=== PATIENT | male | born 1980 | race Caucasian/White ===

== ENCOUNTER 2019-08-19 08:13 | Inpatient (IN) | payer BC ==
[2019-08-19 09:56] LABS: CHLORIDE,CL 101 mEq/L (98-106); SODIUM,NA 138 mEq/L (136-145)
[2019-08-19] MEDS ORDERED: Iopamidol 755 Mg/ML 200 ML Bottle IV ONE (11:01)
[2019-08-19] MEDS ORDERED: Barium Sulfate Oral Susp 450 ML Bottle PO ONE (11:01)
[2019-08-19] MEDS ORDERED: Sodium Chloride 0.9% 1,000 ML IV ONE (11:15)
[2019-08-19] MEDS ORDERED: Morphine 2 MG/ML Syringe IVPUSH PRN (15:07)
[2019-08-19] MEDS ORDERED: Acetaminophen/HYDROcodone 325-5 MG Tab PO PRN (15:07)
[2019-08-19] MEDS ORDERED: Ondansetron 4 MG Tab.DIS PO PRN (15:07)
[2019-08-19] MEDS ORDERED: Levofloxacin/Dextrose 5%-Water 500 MG in Premix Bag 1 BAG IV SCH (15:30)
[2019-08-19] MEDS: Acetaminophen 325 MG Tab PO PRN (16:01)
[2019-08-19] MEDS: Enoxaparin 40 MG/0.4 ML Syringe SUBCUT SCH (16:01)
[2019-08-19] MEDS: Nicotine 14 MG/24 Hr Patch TRDERM SCH (16:01)
[2019-08-19] MEDS: Sodium Chloride 0.9% 1,000 ML IV SCH (16:03)
[2019-08-19] MEDS: Levofloxacin/Dextrose 5%-Water 500 MG in Premix Bag 1 BAG IV SCH (16:05)
[2019-08-20] MEDS: Sodium Chloride 0.9% 1,000 ML IV SCH ×3 (00:13→15:34)
[2019-08-20] MEDS: Acetaminophen 325 MG Tab PO PRN ×2 (04:24→11:49)
[2019-08-20 08:42] LABS: CHLORIDE,CL 108 mEq/L (98-106); SODIUM,NA 142 mEq/L (136-145)
--- NOTE | 2019-08-20 09:02 | PCM.PN ---
- General Info Date of Service: 08/20/19 Admission Dx/Problem (Free Text): Prostatitis Functional Status: Reports: Pain Controlled, Tolerating Diet, Ambulating - Review of Systems General: Reports: Fatigue, Malaise. Denies: Fever HEENT: Reports: No Symptoms Pulmonary: Denies: Shortness of Breath, Cough Cardiovascular: Denies: Chest Pain, Edema, Lightheadedness Gastrointestinal: Reports: Abdominal Pain (abdomen sore). Denies: Nausea, Vomiting Genitourinary: Reports: Retention (patient states less hesitancy noted at 4 am, no blood noted) Musculoskeletal: Reports: No Symptoms Skin: Reports: No Symptoms Neurological: Reports: No Symptoms - Patient Data Vitals - Most Recent: Last Vital Signs Temp 97.0 F 08/20/19 08:00 Pulse 68 08/20/19 08:00 Resp 18 08/20/19 08:00 BP 117/66 08/20/19 08:00 Pulse Ox 98 08/20/19 08:00 Weight - Most Recent: 263 lb 1.6 oz I&O - Last 24 Hours: Intake & Output 08/19/19 08/20/19 08/20/19 22:59 06:59 14:59 Intake Total 1000 921 Balance 1000 921 Lab Results Last 24 Hours: Laboratory Results - last 24 hr 08/19/19 08/19/19 08/19/19 Range/Units 09:26 09:26 09:26 WBC 19.5 H (5.0-10.0) 10^3/uL RBC 5.02 (4.50-6.00) 10^6/uL Hgb 15.7 (14.0-18.0) g/dL Hct 46.5 (40.0-54.0) % MCV 92.6 (82.0-94.0) fL MCH 31.3 (27.0-32.0) pg MCHC 33.8 (33.0-38.0) g/dL RDW Coeff of Bambi 12.8 (11.0-15.0) % Plt Count 232 (150-400) 10^3/uL Neut % (Auto) 72.1 (35-85) % Lymph % (Auto) 15.6 (10-55) % [place] % (Auto) 11.9 (0-16) % Eos % (Auto) 0.2 (0-5) % Baso % (Auto) 0.2 (0-3) % Neut # (Auto) 14.04 H (1.80-7.00) 10^3/uL Lymph # (Auto) 3.05 (1.00-4.80) 10^3/uL [place] # (Auto) 2.32 H (0.00-0.80) 10^3/uL Eos # (Auto) 0.04 (0.00-0.45) 10^3/uL Baso # (Auto) 0.04 10^3/uL Sodium 138 (136-145) mEq/L Potassium 4.0 (3.5-5.0) mEq/L Chloride 101 (98-106) mEq/L Carbon Dioxide 27 (21-32) mmol/L BUN 10 (7-18) mg/dL Creatinine 1.2 (0.7-1.3) mg/dL Est Cr Clr Drug Dosing TNP Estimated GFR (MDRD) > 60 (>=60) mL/min Glucose 92 (75-99) mg/dL Lactic Acid 1.0 (0.4-2.0) mmol/L Calcium 8.9 (8.4-10.1) mg/dL Total Bilirubin 0.8 (0.0-1.0) mg/dL AST 16 (15-37) U/L ALT 36 (12-78) U/L Alkaline Phosphatase 76 (46-116) U/L C-Reactive Protein (0.2-0.8) mg/dL Total Protein 8.2 (6.4-8.2) g/dL Albumin 3.6 (3.4-5.0) g/dL PSA Screen 4.67 H (0.13-4.0) ng/mL 08/20/19 08/20/19 Range/Units 08:30 08:30 WBC 7.8 (5.0-10.0) 10^3/uL RBC 4.63 (4.50-6.00) 10^6/uL Hgb 14.4 (14.0-18.0) g/dL Hct 43.3 (40.0-54.0) % MCV 93.5 (82.0-94.0) fL MCH 31.1 (27.0-32.0) pg MCHC 33.3 (33.0-38.0) g/dL RDW Coeff of Bambi 12.7 (11.0-15.0) % Plt Count 215 (150-400) 10^3/uL Neut % (Auto) 55.7 (35-85) % Lymph % (Auto) 27.2 (10-55) % [place] % (Auto) 15.0 (0-16) % Eos % (Auto) 1.7 (0-5) % Baso % (Auto) 0.4 (0-3) % Neut # (Auto) 4.35 (1.80-7.00) 10^3/uL Lymph # (Auto) 2.12 (1.00-4.80) 10^3/uL [place] # (Auto) 1.17 H (0.00-0.80) 10^3/uL Eos # (Auto) 0.13 (0.00-0.45) 10^3/uL Baso # (Auto) 0.03 10^3/uL Sodium 142 (136-145) mEq/L Potassium 3.8 (3.5-5.0) mEq/L Chloride 108 H (98-106) mEq/L Carbon Dioxide 25 (21-32) mmol/L BUN 10 (7-18) mg/dL Creatinine 1.0 (0.7-1.3) mg/dL Est Cr Clr Drug Dosing 117.36 Estimated GFR (MDRD) > 60 (>=60) mL/min Glucose 98 (75-99) mg/dL Lactic Acid (0.4-2.0) mmol/L Calcium 8.0 L (8.4-10.1) mg/dL Total Bilirubin (0.0-1.0) mg/dL AST (15-37) U/L ALT (12-78) U/L Alkaline Phosphatase (46-116) U/L C-Reactive Protein 10.0 H (0.2-0.8) mg/dL Total Protein (6.4-8.2) g/dL Albumin (3.4-5.0) g/dL PSA Screen (0.13-4.0) ng/mL Med Orders - Current: Current Medications Acetaminophen (Tylenol) 650 mg PO Q4H PRN PRN Reason: Pain (Mild 1-3)/fever Last Admin: 08/20/19 04:24 Dose: 650 mg Hydrocodone Bitart/Acetaminophen ([place] 325-5 Mg) 1 tab PO Q4H PRN PRN Reason: Pain (moderate 4-6) Enoxaparin Sodium (Lovenox) 40 mg SUBCUT Q24H [facility] Last Admin: 08/19/19 16:01 Dose: 40 mg Sodium Chloride (Normal Saline) 1,000 mls @ 125 mls/hr IV ASDIRECTED [facility] Last Admin: 08/20/19 07:35 Dose: 125 mls/hr Levofloxacin/Dextrose 500 mg/ (Premix) 100 mls @ 100 mls/hr IV Q24H [facility] Last Admin: 08/19/19 16:05 Dose: 100 mls/hr Morphine Sulfate (Morphine) 2 mg IVPUSH Q2H PRN PRN Reason: Pain (severe 7-10) Nicotine (Habitrol) 14 mg TRDERM DAILY@1600 [facility] Last Admin: 08/19/19 16:01 Dose: 14 mg Ondansetron HCl (Zofran Odt) 4 mg PO Q4H PRN PRN Reason: nausea, able to take PO Discontinued Medications Barium Sulfate (Readi-Cat 2) 900 ml PO ONETIME ONE Stop: 08/19/19 11:02 Last Admin: 08/19/19 11:45 Dose: 900 ml Sodium Chloride (Normal Saline) 1,000 mls @ 1,000 mls/hr IV ONETIME ONE Stop: 08/19/19 12:14 Last Admin: 08/19/19 11:27 Dose: 1,000 mls/hr Levofloxacin/Dextrose 500 mg/ (Premix) 100 mls @ 100 mls/hr IV Q24H [facility] Iopamidol (Isovue-370 (76%)) 160 ml IV ONETIME ONE Stop: 08/19/19 11:02 Last Admin: 08/19/19 11:46 Dose: 160 ml - Exam General: Alert, Oriented HEENT: Mucous Membr. Moist/[place] Neck: Supple Lungs: Clear to Auscultation, Normal Respiratory Effort Cardiovascular: Regular Rate, Regular Rhythm GI/Abdominal Exam: Normal Bowel Sounds, Soft, Tender (suprapubic area) Extremities: Normal Inspection, No Pedal Edema Skin: Warm, Dry Neurological: No New Focal Deficit Sepsis Event Note - Evaluation Sepsis Screening Result: No Definite Risk - Focused Exam Vital Signs: Vital Signs Temp Pulse Resp BP Pulse Ox 08/20/19 08:00 97.0 F 68 18 117/66 98 08/20/19 04:00 96.6 F 58 L 16 118/64 99 08/20/19 00:00 96.7 F 74 20 121/64 98 Date Exam was Performed: 08/20/19 Time Exam was Performed: 08:57 - Problem List & Annotations (1) Prostatitis SNOMED Code(s): 9310474 Code(s): N41.9 - INFLAMMATORY DISEASE OF PROSTATE, UNSPECIFIED Status: Acute Priority: High Current Visit: Yes - Problem List Review Problem List Initiated/Reviewed/Updated: Yes - Assessment Assessment:: Prostatitis - Plan Plan:: Patient is feeling better today. States has less hesitancy now. Noted stream was better around 0400 but did have significant burning at that time. Now afebrile. No nausea. Good appetite this am. Abdomen is soft, mildly tender to suprapubic area. WBC down to 7.8 this am. CRP 10. Will continue with IV fluids. Levaquin IV. Repeat labs in am. Follow up with urology after discharge for mass on kidney.
[2019-08-20] MEDS: Nicotine 14 MG/24 Hr Patch TRDERM SCH (15:11)
[2019-08-20] MEDS: Levofloxacin/Dextrose 5%-Water 500 MG in Premix Bag 1 BAG IV SCH (15:12)
[2019-08-20] MEDS: Enoxaparin 40 MG/0.4 ML Syringe SUBCUT SCH (15:12)
[2019-08-21] MEDS: Sodium Chloride 0.9% 1,000 ML IV SCH (00:24)
[2019-08-21] MEDS: Levofloxacin/Dextrose 5%-Water 500 MG in Premix Bag 1 BAG IV SCH ×2 (12:59→16:14)
[2019-08-21] MEDS: Nicotine 14 MG/24 Hr Patch TRDERM SCH (16:13)
[2019-08-21] MEDS: Enoxaparin 40 MG/0.4 ML Syringe SUBCUT SCH (16:14)
[2019-08-21 17:43] VITALS: BP 127/60; PULSE 70
--- NOTE | 2019-08-21 20:41 | PCM.DCSUM1 ---
Discharge Summary - Hospital Course Free Text/Narrative:: Patient presented to clinic with complaints of dysuria, frequency, urgency and pain in the rectal area. He has had hesitancy with urination, complains of pain and blood streaks at the end of his stream. Pain increasing over the last 3 days. WBC elevated at 19.5. PSA mildly elevated at 4.67. Urine positive. Admitted for prostatitis. Started on IV fluids and Levaquin. Diagnosis: Stroke: No Modified Powers Scale: No Symptoms at All Modified Powers Scale Score: 0 - Discharge Data Discharge Date: 08/21/19 Discharge Disposition: Home, Self-Care 01 Condition: Good - Referral to Home Health Primary Care Physician: Jake Grant PA-C - Discharge Diagnosis/Problem(s) (1) Prostatitis SNOMED Code(s): 8901012 ICD Code: N41.9 - INFLAMMATORY DISEASE OF PROSTATE, UNSPECIFIED Status: Acute Priority: High Qualifiers: Prostatitis type: acute Qualified Code(s): N41.0 - Acute prostatitis - Patient Summary/Data Complications: none Hospital Course: Patient feeling better. Less suprapubic pain. Admits to less discomfort with voiding now, less hesitancy. Afebrile. Abdomen is soft, nontender. WBC now normal at 7.8. CRP did increase to 10. STD testing negative. Urine culture did grow e coli, sensitive to Levaquin. Is tolerating meal intake and ambulating about. Did have CT scan of abdomen that showed mass on kidney. Discharge home on Levaquin. Will arrange follow up with urologist for kidney mass versus cyst. Follow up with Dr. Sherman in 2 weeks. - Patient Instructions Diet: Usual Diet as Tolerated Activity: As Tolerated - Discharge Plan *PRESCRIPTION DRUG MONITORING PROGRAM REVIEWED*: No *COPY OF PRESCRIPTION DRUG MONITORING REPORT IN PATIENT PHU: No Prescriptions/Med Rec: Levofloxacin [Levaquin] 500 mg PO DAILY #14 tablet Home Medications: Home Meds Levofloxacin [Levaquin] 500 mg PO DAILY #14 tablet 08/21/19 [Rx] Patient Handouts: Prostatitis Referrals: Chidi Sherman MD [ED Physician] - (Follow up with Dr. Sherman in 2 weeks) - Discharge Summary/Plan Comment DC Time >30 min.: No - General Info Date of Service: 08/21/19 Admission Dx/Problem (Free Text: Prostatitis Functional Status: Reports: Pain Controlled, Tolerating Diet, Ambulating - Review of Systems General: Reports: Malaise. Denies: Fever, Weakness, Fatigue HEENT: Reports: No Symptoms Pulmonary: Denies: Shortness of Breath, Cough Cardiovascular: Denies: Chest Pain, Lightheadedness Gastrointestinal: Reports: Abdominal Pain. Denies: Nausea, Vomiting Genitourinary: Reports: Dysuria. Denies: Hematuria, Retention Musculoskeletal: Reports: No Symptoms Skin: Reports: No Symptoms Neurological: Reports: No Symptoms - Patient Data Vitals - Most Recent: Last Vital Signs Temp 98.0 F 08/21/19 16:00 Pulse 70 08/21/19 16:00 Resp 16 08/21/19 16:00 BP 127/60 08/21/19 16:00 Pulse Ox 98 08/21/19 16:00 Weight - Most Recent: 263 lb 1.6 oz I&O - Last 24 hours: Intake & Output 08/21/19 08/21/19 08/21/19 06:59 14:59 22:59 Intake Total 1000 Balance 1000 TOBY Results - Last 24 hrs: Microbiology 08/19/19 08:16 Urine Culture - Final Urine, Voided Escherichia Coli 08/19/19 09:28 Aerobic Blood Culture - Preliminary Blood NO GROWTH AFTER 2 DAYS Anaerobic Blood Culture - Preliminary NO GROWTH AFTER 2 DAYS Med Orders - Current: Current Medications Discontinued Medications Acetaminophen (Tylenol) 650 mg PO Q4H PRN PRN Reason: Pain (Mild 1-3)/fever Last Admin: 08/20/19 11:49 Dose: 650 mg Hydrocodone Bitart/Acetaminophen ([place] 325-5 Mg) 1 tab PO Q4H PRN PRN Reason: Pain (moderate 4-6) Barium Sulfate (Readi-Cat 2) 900 ml PO ONETIME ONE Stop: 08/19/19 11:02 Last Admin: 08/19/19 11:45 Dose: 900 ml Enoxaparin Sodium (Lovenox) 40 mg SUBCUT Q24H [facility] Last Admin: 08/21/19 16:14 Dose: Not Given Sodium Chloride (Normal Saline) 1,000 mls @ 1,000 mls/hr IV ONETIME ONE Stop: 08/19/19 12:14 Last Admin: 08/19/19 11:27 Dose: 1,000 mls/hr Levofloxacin/Dextrose 500 mg/ (Premix) 100 mls @ 100 mls/hr IV Q24H [facility] Sodium Chloride (Normal Saline) 1,000 mls @ 125 mls/hr IV ASDIRECTED [facility] Last Admin: 08/21/19 00:24 Dose: 125 mls/hr Levofloxacin/Dextrose 500 mg/ (Premix) 100 mls @ 100 mls/hr IV Q24H [facility] Last Admin: 08/21/19 16:14 Dose: Not Given Iopamidol (Isovue-370 (76%)) 160 ml IV ONETIME ONE Stop: 08/19/19 11:02 Last Admin: 08/19/19 11:46 Dose: 160 ml Morphine Sulfate (Morphine) 2 mg IVPUSH Q2H PRN PRN Reason: Pain (severe 7-10) Nicotine (Habitrol) 14 mg TRDERM DAILY@1600 [facility] Last Admin: 08/21/19 16:13 Dose: 14 mg Ondansetron HCl (Zofran Odt) 4 mg PO Q4H PRN PRN Reason: nausea, able to take PO - Exam General: Reports: Alert, Oriented HEENT: Reports: Mucous Membr. Moist/[place] Neck: Reports: Supple Lungs: Reports: Clear to Auscultation, Normal Respiratory Effort Cardiovascular: Reports: Regular Rate, Regular Rhythm GI/Abdominal Exam: Normal Bowel Sounds, Soft, Non-Tender Extremities: Normal Inspection, No Pedal Edema Skin: Reports: Warm, Dry Neurological: Reports: No New Focal Deficit
== END 2019-08-21 17:15 | disposition home or self-care (01) | DRG 501 ==
LOC: CC.FCMC 08:13 → CC.MS 08:13 → UNDOADMIN 14:21 → CC.MS 14:21
PROVIDERS: ADMIT Family Medicine; ATTEND Family Medicine
DX: N41.0 Acute prostatitis (principal); F17.210 Nicotine dependence, cigarettes, uncomplicated; B96.89 Other specified bacterial agents as the cause of diseases classified elsewhere; F41.9 Anxiety disorder, unspecified; Z79.2 Long term (current) use of antibiotics
CPT/HCPCS: 36415; 74177; 80048; 80053; 81001; 83605; 85025; 86140; 87040; 87086; 87088; 87186; 87491; 87591; A9270-GY; G0103; J1650; J1956; J7030; Q9967